=== PATIENT | male | born 1975 | race Caucasian/White ===

== ENCOUNTER 2021-04-22 07:42 | Day surgery (SDC) | payer MEDICAID, SELFPAY ==
[~2021-04-22] VITALS: Ht 175.3 cm; Wt 86.2 kg
[2021-04-22] MEDS ORDERED: IOHEXOL 300 mgI/mL, 50 mL INFUS..BTL IV ONE (07:43)
[2021-04-22] MEDS ORDERED: BUPIVACAINE /PF 0.25% 30 ML VIAL INJ ONE (07:43)
[2021-04-22] MEDS ORDERED: LIDOCAINE 2%, 20 ML MDV INJ ONE (07:43)
[2021-04-22] MEDS ORDERED: METHYLPREDNISOLONE SOD SUCC 40 MG/ML VIAL IVP ONE (07:43)
[2021-04-22] MEDS ORDERED: methylPREDNISolone ACETATE 40 MG/ML IM ONE (07:43)
[2021-04-22] MEDS ORDERED: MIDAZOLAM HCL 5 MG/5 ML VIAL ONE (08:45)
[2021-04-22] MEDS ORDERED: DIPHENHYDRAMINE INJ 50 MG/ML VIAL ONE (08:46)
[2021-04-22 13:22] VITALS: BP_SYST 116
== END 2021-04-22 10:45 | disposition home or self-care (01) ==
LOC: SDS 07:42 → SMU 07:42 → EDSTATUS 10:00 → SDS 10:45
PROVIDERS: ATTEND Internal Medicine
DX: M51.16 Intervertebral disc disorders with radiculopathy, lumbar region (principal); G89.4 Chronic pain syndrome; Z20.822 Contact with and (suspected) exposure to COVID-19; Z79.899 Other long term (current) drug therapy
CPT/HCPCS: 36415; 62323; 87426; J1030; J1200; J2001; J2250; J3490; Q9967; 76000

== ENCOUNTER 2022-07-30 19:47 | Emergency (ER) | payer MEDICAID ==
[~2022-07-30] VITALS: Ht 167.6 cm; Wt 80.3 kg
[2022-07-30 20:17] VITALS: BP_SYST 116
[2022-07-30 22:55] VITALS: BP_SYST 118
== END 2022-07-30 22:53 | disposition home or self-care (01) ==
LOC: SED 19:47
DX: L03.115 Cellulitis of right lower limb (principal); R22.41 Localized swelling, mass and lump, right lower limb; Z79.899 Other long term (current) drug therapy
CPT/HCPCS: 73590-TC; 93971; 99284